=== PATIENT | female | born 1955 | race Caucasian/White ===

== ENCOUNTER → 2016-10-29 | Outpatient (REF) | payer MEDICARE ==
[~2016-10-29] MED LIST: AC325T PO; ALBU2.5V12 INH; ALBU8.5H2 IH; ALPR.25T PO; CEFD300C PO; CITA10TA4 PO; IBP200T PO; IBUP-1772 PO; INSU100I10 SC; LANC-956 MC; LSNP10T PO; METF1000 PO; METR500T17 PO; NEED1DIS84 MC; ONDA-51 PO; OXYC1TAB87 PO; SERT50TA9 PO; TESTSTRIPS MC
[2016-10-29 11:40] LABS: ALBUMIN 3.7 g/dL (3.4-5.0); ANION GAP 16.5 MEQ/L (3-15); CALCULATED IONIZED CALCIUM 4.3 mg/dL (3.8-4.6); TOTAL PROTEIN 6.5 g/dL (6.4-8.5)
== END ==
LOC: LAB 11:08
PROVIDERS: ATTEND Family Medicine
DX: E11.9 Type 2 diabetes mellitus without complications (principal); R63.4 Abnormal weight loss; I10 Essential (primary) hypertension; Z85.72 Personal history of non-Hodgkin lymphomas
CPT/HCPCS: 80053; 80061; 82985; 84443

== ENCOUNTER → 2016-11-02 | Outpatient (CLI) | payer MEDICARE ==
[~2016-11-02] MED LIST changes: -ALPR.25T PO; -LSNP10T PO; -ONDA-51 PO; -OXYC1TAB87 PO; -SERT50TA9 PO
--- NOTE | 2016-11-02 08:52 | Diagnostic Imaging Report ---
PROCEDURE: CT chest without contrast. TECHNIQUE: Multiple contiguous axial images were obtained through the chest without the use of intravenous contrast. DATE: November 02, 2016. COMPARISON: None. INDICATION: 61-year-old female, history of non-Hodgkin's lymphoma. 100 pound weight loss in 10 months. FINDINGS: There are mild linear opacities in the right lower lobe compatible with atelectasis and/or scarring. There is minimal atelectasis or scarring in the lingula. There is no additional focal airspace consolidation. There is no identified pulmonary nodule. There is no pneumothorax. There is no pleural effusion. The central airways are patent. There is a low-attenuation left thyroid nodule on axial image 4 which measures 2.3 cm in size. The heart is not enlarged. There is no pericardial effusion. There is a right superior mediastinal lymph node on axial image 5 measuring 4 mm in size. There are subcentimeter short axis axillary lymph nodes. There is no identified mediastinal, hilar, or axillary lymph node which specifically meets CT size criteria for adenopathy. Please see separately dictated CT abdomen and pelvis report for findings within the abdomen and pelvis. There is no identified acute bony abnormality. There are multilevel degenerative changes of the spine. IMPRESSION: CT CHEST. 1. No identified acute cardiopulmonary abnormality. 2. No mediastinal, hilar, or axillary lymph node specifically meeting CT size criteria for adenopathy. 3. 2.3 cm nodule in the left lobe of the thyroid. Recommend dedicated thyroid ultrasound for further assessment. 4. Please see separately dictated CT abdomen and pelvis report for findings within the abdomen and pelvis. Dictated by: Dictated on workstation # [id number]
--- NOTE | 2016-11-02 08:57 | Diagnostic Imaging Report ---
PROCEDURE: CT abdomen and pelvis with and without contrast. TECHNIQUE: Precontrast acquisitions were acquired through the abdomen and pelvis. Multiple contiguous axial images were obtained through the abdomen and pelvis after the administration of intravenous contrast. DATE: November 02, 2016. COMPARISON: None. INDICATION: 61-year-old female, history of non-Hodgkin's lymphoma. 100 pound weight loss in the last 10 months. FINDINGS: Please see separately dictated CT chest report for intrathoracic findings. The liver is normal in size and contour. There is no identified liver lesion. The main, right, and left portal veins are patent. There is cholelithiasis without evidence of acute cholecystitis. There is no intrahepatic or extrahepatic bile duct dilation. The main pancreatic duct is not abnormally dilated. The pancreatic parenchyma is unremarkable. The spleen is normal in size. The adrenal glands are unremarkable. There is a low-attenuation right renal lesion on axial image 41 which measures up to 1.3 cm in size with internal attenuation measuring 10 Hounsfield units on coronal postcontrast image 38. On precontrast imaging, this has an internal attenuation value of 16 Hounsfield units. This does not demonstrate contrast enhancement. The additional evaluation of the renal parenchyma is unremarkable. The urinary collecting systems are not distended. There is no identified renal or ureteral stone. The urinary collecting systems are not distended. The urinary bladder is unremarkable in appearance. There is no identified intrauterine or adnexal mass on CT evaluation. There is a large anterior abdominal wall hernia containing segments of transverse colon as well as fat. There is no associated bowel obstruction. The appendix is unremarkable in appearance. There is no evidence of acute appendicitis. There is no free intraperitoneal air. There is no drainable fluid collection. There is no free pelvic fluid. There are atherosclerotic calcifications. There is no identified abnormally enlarged lymph node within the abdomen or pelvis which meets CT size criteria for adenopathy. There are mild bilateral sacroiliac degenerative changes. There are degenerative changes of the spine. There is no identified acute bony abnormality. There is mild grade 1 anterolisthesis of L4 on L5 relating to facet degenerative changes. IMPRESSION: CT ABDOMEN AND PELVIS. 1. 1.3 cm benign right renal cyst. 2. No findings suspicious for malignancy within the abdomen or pelvis. 3. Large anterior abdominal wall hernia which contains transverse colon as well as fat. There is no evidence of associated obstruction or other complication. Dictated by: Dictated on workstation # [id number]
== END ==
LOC: RAD 07:10
PROVIDERS: ATTEND Family Medicine
DX: R63.4 Abnormal weight loss (principal); Z85.72 Personal history of non-Hodgkin lymphomas; N28.1 Cyst of kidney, acquired; K43.9 Ventral hernia without obstruction or gangrene
CPT/HCPCS: 71250; 74178; Q9967

== ENCOUNTER → 2016-11-08 | Outpatient (REF) | payer MEDICARE ==
[~2016-11-08] MED LIST changes: +ALPR.25T PO; +LSNP10T PO; +ONDA-51 PO; +OXYC1TAB87 PO; +SERT50TA9 PO
[2016-11-08 11:07] LABS: BASOPHILS % (AUTO) 0 % (0-2); EOSINOPHILS # (AUTO) 0.2 10^3uL; EOSINOPHILS % (AUTO) 1 % (0-4); LYMPHOCYTES # (AUTO) 1.1 X10^3; MEAN CORPUSCULAR HGB CONC 32.4 g/dL (31.0-37.0); MEAN PLATELET VOLUME 11.1 FL (6.0-9.5); MONOCYTES # (AUTO) 0.8 X10^3; MONOCYTES % (AUTO) 5 % (3-11); NEUTROPHILS # (AUTO) 12.1 X10^3; NEUTROPHILS % (AUTO) 85 % (51-67); PLATELET COUNT 253 10^3uL (150-450); WHITE BLOOD COUNT 14.22 10^3uL (4.0-11.0)
[2016-11-08 11:14] LABS: MEAN CORPUSCULAR HEMOGLOBIN 23.4 PG (26.0-34.0); MEAN CORPUSCULAR VOLUME 72 FL (80-100)
[2016-11-08 11:17] LABS: ALBUMIN 3.5 g/dL (3.4-5.0); ANION GAP 15.4 MEQ/L (3-15); CALCULATED IONIZED CALCIUM 4.5 mg/dL (3.8-4.6); TOTAL PROTEIN 6.2 g/dL (6.4-8.5)
[2016-11-08 11:19] LABS: BILIRUBIN,URINE Negative (Negative); CLARITY,URINE Clear; GLUCOSE, URINE (UA) 2+ (Negative); LEUKOCYTE ESTERASE ,URINE Negative (Negative); PH,URINE 5.5 (5.0 - 8.0); UROBILINOGEN,URINE 0.2 mg/dL (0.2-1.0)
[2016-11-08 11:30] LABS: COLOR,URINE Dark Yellow
== END ==
LOC: LAB 10:18
PROVIDERS: ATTEND Physician Assistant Surgical
DX: R10.2 Pelvic and perineal pain (principal); R19.5 Other fecal abnormalities
CPT/HCPCS: 80053; 81003; 85025

== ENCOUNTER 2016-11-11 09:29 | Emergency (ER) | payer MEDICARE ==
[~2016-11-11] VITALS: Ht 172.7 cm; Wt 110.3 kg
[~2016-11-11 09:29] MED LIST changes: -ALPR.25T PO; -LSNP10T PO; -ONDA-51 PO; -OXYC1TAB87 PO; -SERT50TA9 PO
[2016-11-11] MEDS ORDERED: ALPR.25T PO (10:02)
[2016-11-11] MEDS ORDERED: LSNP10T PO (10:02)
[2016-11-11] MEDS ORDERED: SERT50TA9 PO (10:02)
[2016-11-11] MEDS ORDERED: ONDA-51 PO (10:02)
[2016-11-11] MEDS ORDERED: morphine INJ 4 MG/ML 1 ML SYRINGE IV PRN (10:20)
[2016-11-11] MEDS ORDERED: SODIUM CHLORIDE FLUSH 10 ML SYR IV PRN (10:20)
[2016-11-11] MEDS ORDERED: SODIUM CHLORIDE FLUSH 3 ML SYR IV PRN (10:20)
[2016-11-11 10:41] LABS: BASOPHILS % (AUTO) 0 % (0-2); EOSINOPHILS # (AUTO) 0.2 10^3uL; EOSINOPHILS % (AUTO) 2 % (0-4); MEAN CORPUSCULAR HGB CONC 32.3 g/dL (31.0-37.0); MEAN PLATELET VOLUME 10.7 FL (6.0-9.5); MONOCYTES % (AUTO) 7 % (3-11); NEUTROPHILS # (AUTO) 11.8 X10^3; NEUTROPHILS % (AUTO) 84 % (51-67); PLATELET COUNT 255 10^3uL (150-450); WHITE BLOOD COUNT 14.04 10^3uL (4.0-11.0)
[2016-11-11 10:43] LABS: MEAN CORPUSCULAR HEMOGLOBIN 23.3 PG (26.0-34.0); MEAN CORPUSCULAR VOLUME 72 FL (80-100)
[2016-11-11 10:49] LABS: ALBUMIN 3.5 g/dL (3.4-5.0); ANION GAP 14.3 MEQ/L (3-15); CALCULATED IONIZED CALCIUM 4.2 mg/dL (3.8-4.6); TOTAL PROTEIN 6.6 g/dL (6.4-8.5)
[2016-11-11] MEDS ORDERED: OXYC1TAB87 PO (13:06)
[2016-11-11 14:22] VITALS: BP 129/89
== END 2016-11-11 13:44 | disposition home or self-care (01) ==
LOC: EDUNIT# 09:29 → ED 09:30
DX: K43.9 Ventral hernia without obstruction or gangrene (principal); R19.7 Diarrhea, unspecified
CPT/HCPCS: 36415; 80053; 83690; 85025; 96361; 96374; 99283; J2270; J7030